=== PATIENT | female | born 1945 | race Caucasian/White ===

== ENCOUNTER 2020-04-11 15:06 | Inpatient (IN) | payer MEDICARE, BC, OTHER ==
[2020-04-11 16:13] LABS: #Basophils 0.1 thou/uL (0.0-0.2); #Lymphocytes 0.8 thou/uL (1.20-3.40); #Monocytes 1.2 thou/uL (0.11-0.59); #Neutrophils 16.5 thou/uL (1.40-6.50); %Basophils 0.6 % (0.0-1.0); %Eosinophils 0.2 % (0.0-10.0); %Lymphocytes 4.2 % (21.0-51.0); %Monocytes 6.5 % (0.0-10.0); %Neutrophils 88.6 % (42.0-75.0); Hemoglobin 6.7 g/dL (12.0-16.0); Mean Corpuscular HGB CONC 27.8 g/dL (32.0-36.0); Mean Corpuscular Hemoglobin 18.7 pg (27.0-31.0); Mean Corpuscular Volume 67.5 fL (78.0-98.0); Mean Platelet Volume 8.5 fL (7.4-10.4); Platelet Count 526 thou/uL (130-400); RBC Distribution Width 19.9 % (11.5-14.5); Red Blood Cell (RBC) Count 3.59 mill/uL (4.20-5.40); White Blood Cell (WBC) Count 18.6 thou/uL (4.8-10.8)
[2020-04-11 16:21] LABS: ALT (SGPT) 81 U/L (8-55); AST (SGOT) 340 U/L (5-34); Albumin 3.1 g/dL (3.4-4.8); Alkaline Phosphatase 746 U/L (40-110); Anion Gap 18 mmol/L (10-20); BUN (Urea Nitrogen) 21 mg/dL (9.8-20.1); Bilirubin, Total 0.7 mg/dL (0.2-1.2); Calc. Creatinine Clearance 0 mL/min (70-130); Calcium 9.3 mg/dL (7.8-10.44); Carbon Dioxide 23 mmol/L (23-31); Chloride 100 mmol/L (98-107); Estimated GFR-MDRD Greater than 90; Globulin 3.2 g/dL (2.4-3.5); Glucose 155 mg/dL (83-110); Lipase 48 U/L (8-78); Potassium 4.9 mmol/L (3.5-5.1); Protein, Total 6.3 g/dL (6.0-8.3); Sodium 136 mmol/L (136-145)
[2020-04-11 16:27] LABS: INR-International Normal Ratio 1.3; PTT 32.2 sec (22.9-36.1); Prothrombin Time 16.2 sec (12.0-14.7)
[2020-04-11] MEDS ORDERED: Albuterol Sulfate 2.5 mg/3 ml Neb ONE (16:49)
[2020-04-11 17:02] LABS: Anisocytosis MODERATE=16-30 cells (100X) (0-5/hpf); Hypochromia MODERATE=16-30 cells (100X) (0-5/hpf); MDiff Complete? YES; Microcytosis MODERATE=15-30 cells (100X) (0-5/hpf); Platelet Morphology Comment Appears Increased; Polychromasia SLIGHT = 2-3 cells (100X) (0-2/hpf)
[2020-04-11] MEDS ORDERED: Sodium Chloride 0.9% 500 ML ONE (17:15)
--- NOTE | 2020-04-11 17:53 | RAD ---
SINGLE VIEW CHEST: Date: 04/11/2020 COMPARISON: 03/10/2020. CTA chest dated 03/10/2020. HISTORY: Dyspnea. FINDINGS: Single view of the chest shows an enlarged but stable cardiomediastinal silhouette. Scattered areas o f air space opacity are seen in the lungs. This is most prominent in the right upper lobe. There is u pward tenting of the right hemidiaphragm. There may be small bilateral effusions. IMPRESSION: 1. Right upper lobe infiltrate. 2. Bilateral pleural effusions. POS: AYANA
[2020-04-11] MEDS ORDERED: Ondansetron PF 4 MG/2 ML Vial IVP PRN (19:31)
[2020-04-11 20:13] LABS: Lactic Acid 1.3 mmol/L (0.5-2.2)
[2020-04-11 21:00] VITALS: BMI 17.5
[2020-04-11] MEDS ORDERED: Sodium Chloride 0.9% 250 ML 250 ML ONE (21:35)
[2020-04-11] MEDS: Famotidine/PF 20 mg/2ml Vial SLOW IVP SCH (21:48)
[2020-04-11] MEDS: Saccharomyces boulardii 250 MG CAP PO SCH (21:48)
[2020-04-11] MEDS: Benzonatate 100 MG CAP PO PRN (21:48)
[2020-04-12] MEDS: Levothyroxine Sodium 88 MCG TAB PO SCH (05:34)
[2020-04-12 06:21] LABS: ALT (SGPT) 67 U/L (8-55); AST (SGOT) 270 U/L (5-34); Albumin 2.8 g/dL (3.4-4.8); Alkaline Phosphatase 650 U/L (40-110); Anion Gap 15 mmol/L (10-20); BUN (Urea Nitrogen) 17 mg/dL (9.8-20.1); Bilirubin, Total 0.8 mg/dL (0.2-1.2); Calc. Creatinine Clearance 78 mL/min (70-130); Calcium 8.9 mg/dL (7.8-10.44); Carbon Dioxide 23 mmol/L (23-31); Chloride 104 mmol/L (98-107); Estimated GFR-MDRD Greater than 90; Globulin 2.9 g/dL (2.4-3.5); Glucose 116 mg/dL (83-110); Potassium 4.2 mmol/L (3.5-5.1); Protein, Total 5.7 g/dL (6.0-8.3); Sodium 138 mmol/L (136-145)
[2020-04-12 06:31] LABS: Bilirubin Small (Negative); Blood, Urine Trace (Negative); Clarity Hazy (Clear); Glucose, Urine (Dipstick) Negative (Negative); Ketone, Urine Trace mg/dL (Negative); Leukocyte Moderate (Negative); Nitrite Negative (Negative); Protein, Urine (Dipstick) 30 mg/dL (Neg-Trace); Urobilinogen 0.2 mg/dL (Less than 2); pH, Urine 5.5 (5.0-9.0)
[2020-04-12 06:37] LABS: #Basophils 0.1 thou/uL (0.0-0.2); #Lymphocytes 0.8 thou/uL (1.20-3.40); #Monocytes 1.5 thou/uL (0.11-0.59); #Neutrophils 12.8 thou/uL (1.40-6.50); %Basophils 0.5 % (0.0-1.0); %Eosinophils 0.2 % (0.0-10.0); %Lymphocytes 5.3 % (21.0-51.0); %Monocytes 9.7 % (0.0-10.0); %Neutrophils 84.3 % (42.0-75.0); Anisocytosis SLIGHT = 6-15 cells (100X) (0-5/hpf); Band 1 % (5-11); Hemoglobin 8.4 g/dL (12.0-16.0); Hypochromia SLIGHT = 6-15 cells (100X) (0-5/hpf); Lymphocytes 20 % (21-51); MDiff Complete? YES; Mean Corpuscular HGB CONC 28.5 g/dL (32.0-36.0); Mean Corpuscular Volume 73.6 fL (78.0-98.0); Mean Platelet Volume 7.6 fL (7.4-10.4); Microcytosis SLIGHT = 6-15 cells (100X) (0-5/hpf); Monocytes 8 % (0-10); Neutrophil 71 % (42-75); Platelet Count 360 thou/uL (130-400); Platelet Morphology Comment Appears Adequate; Polychromasia SLIGHT = 2-3 cells (100X) (0-2/hpf); Red Blood Cell (RBC) Count 3.98 mill/uL (4.20-5.40); White Blood Cell (WBC) Count 15.2 thou/uL (4.8-10.8)
[2020-04-12 06:44] LABS: RBC/HPF 0-3 HPF (0-3); WBC/HPF 21-50 HPF (0-3)
[2020-04-12 06:45] LABS: Bacteria/HPF 1+ HPF (None Seen)
[2020-04-12] MEDS: Saccharomyces boulardii 250 MG CAP PO SCH ×2 (09:26→20:51)
[2020-04-12] MEDS: Dexamethasone 4 MG TAB PO SCH (09:27)
[2020-04-12] MEDS: Multivitamin W/ Minerals 1 TAB PO SCH (09:32)
[2020-04-12] MEDS: Losartan 25 MG TAB PO SCH (09:32)
[2020-04-12] MEDS: Cyanocobalamin (Vitamin B-12) 1,000 MCG TAB PO SCH (09:33)
[2020-04-12] MEDS: Famotidine/PF 20 mg/2ml Vial SLOW IVP SCH ×2 (09:33→20:51)
[2020-04-12] MEDS: metFORMIN 500 MG TAB PO SCH ×2 (09:33→16:05)
[2020-04-12] MEDS: Benzonatate 100 MG CAP PO PRN (16:05)
[2020-04-12 16:28] LABS: SARS-CoV-2 MS2 Positive; SARS-CoV-2 N Gene Negative; SARS-CoV-2 S Gene Negative; SARS-CoV-2 by NAA Not Detected (NotDetected); SARS-CoV-2 orf1ab Negative
--- NOTE | 2020-04-13 05:04 | PRG ---
DATE OF SERVICE: 04/12/2020 SUBJECTIVE: The patient is an unfortunate 74-year-old white female with a history of progressive hepatocellular carcinoma with right atrial thrombus, who has developed a lower GI bleed with hematochezia and melena. She has been transfused with 2 units of packed cells and feels better today, but is still dyspneic on minimal exertion and still lying in the bed with weakness on the patient. However, upon discussion with the patient, she still wishes to continue with chemotherapy and after discussion with her oncologist personally, Dr. Garcia, He states that he can offer her some more therapy, if she stabilizes from the GI bleed and is able to be anticoagulated for right atrial thrombus. PHYSICAL EXAMINATION: VITAL SIGNS: Today show a temperature of 97, pulse 80, respirations 20, O2 sats 93% on 2.5 L and blood pressure is 168/73. LABORATORY DATA: White count is down to 15,000, hematocrit 29, hemoglobin up to 8.4. Sodium 138, potassium 4.2, chloride 104, bicarb , creatinine 0.49, glucose 160, alkaline phosphatase 650, albumin 2.8, AST 270, ALT 67. ASSESSMENT: 1. Improved anemia after transfusion from gastrointestinal bleed with no further gastrointestinal bleed. 2. Progressive hepatocellular carcinoma with progression into the inferior vena cava and right atrium with significant risk for pulmonary embolus. 3. Recent bilateral pneumonia. Appears to have improved, but now still has leukocytosis, although on Decadron and has no fever or other criteria for sepsis, but is being covered with Levaquin 750 daily. PLAN: Discuss further with oncologist and family and probably transfer to [facility] for gastrology evaluation of her GI bleed and then probable institution of anticoagulation. She will also be continued on antibiotic treatment and her leukocytosis, hypoxemia and pulmonary infiltrate will be followed. Job ID: [id number]
[2020-04-13] MEDS: Levothyroxine Sodium 88 MCG TAB PO SCH (05:15)
[2020-04-13 05:29] LABS: Hemoglobin 8.6 g/dL (12.0-16.0); Mean Corpuscular HGB CONC 29.1 g/dL (32.0-36.0); Mean Corpuscular Hemoglobin 21.1 pg (27.0-31.0); Mean Corpuscular Volume 72.6 fL (78.0-98.0); Red Blood Cell (RBC) Count 4.07 mill/uL (4.20-5.40); White Blood Cell (WBC) Count 15.8 thou/uL (4.8-10.8)
[2020-04-13 05:30] LABS: #Basophils 0.1 thou/uL (0.0-0.2); #Lymphocytes 0.8 thou/uL (1.20-3.40); #Monocytes 1.6 thou/uL (0.11-0.59); #Neutrophils 13.2 thou/uL (1.40-6.50); %Basophils 0.8 % (0.0-1.0); %Eosinophils 0.1 % (0.0-10.0); %Lymphocytes 5.3 % (21.0-51.0); %Neutrophils 83.8 % (42.0-75.0); ALT (SGPT) 58 U/L (8-55); AST (SGOT) 196 U/L (5-34); Albumin 2.8 g/dL (3.4-4.8); Alkaline Phosphatase 700 U/L (40-110); Anion Gap 14 mmol/L (10-20); Anisocytosis MODERATE=16-30 cells (100X) (0-5/hpf); BUN (Urea Nitrogen) 13 mg/dL (9.8-20.1); Bilirubin, Total 0.7 mg/dL (0.2-1.2); Calc. Creatinine Clearance 80 mL/min (70-130); Calcium 8.9 mg/dL (7.8-10.44); Carbon Dioxide 26 mmol/L (23-31); Chloride 102 mmol/L (98-107); Estimated GFR-MDRD Greater than 90; Glucose 104 mg/dL (83-110); Hypochromia MARKED = >30 cells (100X) (0-5/hpf); MDiff Complete? YES; Mean Platelet Volume 7.7 fL (7.4-10.4); Platelet Count 329 thou/uL (130-400); Platelet Morphology Comment Appears Adequate; Polychromasia SLIGHT = 2-3 cells (100X) (0-2/hpf); Potassium 4.5 mmol/L (3.5-5.1); Protein, Total 5.8 g/dL (6.0-8.3); RBC Distribution Width 23.7 % (11.5-14.5); Sodium 137 mmol/L (136-145); Target Cells SLIGHT = 2-5 cells (100X) (0-1/hpf)
--- NOTE | 2020-04-13 06:08 | HP ---
CHIEF COMPLAINT: Symptomatic anemia and recent lower GI bleed in a patient on chemotherapy for progressive hepatocellular carcinoma. HISTORY OF PRESENT ILLNESS: The patient is a 74-year-old white female recently known to myself with a diagnosis of liver cancer since October 2019 with IV chemotherapy and radioactive beads with initially felt to have some improvement, but with recent finding of progression of her tumor from the liver into the inferior vena cava and into the right atrium with a 4 x 2 cm mass in the right atrium, most likely a combination of tumor and thrombus associated with distention of the pulmonary arteries and finding of pulmonary hypertension. She also has been found to have a recent diagnosis of pneumonia in March of this year, requiring admission to [facility] for treatment with broad-spectrum antibiotics. She was found to be COVID negative. CT angio at that time showed no pulmonary embolus. She, however, remained hypoxic and was discharged home on 2 L of oxygen with resolving infiltrates. She has been found on this admission to have persistent right upper lobe infiltrate and increasing infusions. She has also been found however to have the above-mentioned significant anemia with a hemoglobin of 6.7 and severe weakness. This is compared to her previous chronic anemia of 8-9 g of hemoglobin for the last 6 months. Upon questioning, it was found that she has had dark stools for 2 weeks and bright red blood per rectum for the last several days. She has had minimal but stable abdominal pain. She has had no nausea, vomiting, or hematemesis. She has been admitted to the hospital for transfusion of 2 units of packed cells and monitoring of her GI bleeding. She will have further consultation with Gastroenterology after more discussion with her oncologist, Dr. Garcia. His phone is [phone]. She does state she wished to be admitted to the hospital and wants more aggressive treatment and is not interested in palliative care or hospice at this time. REVIEW OF SYSTEMS: HEENT: She denies headaches. She does have some weakness, but no dizziness. No change in vision or hearing. No fever, chills. PULMONARY: She complains of shortness of breath with no cough, sputum production, or chest pain. CARDIOVASCULAR: She denies chest pain, orthopnea, paroxysmal nocturnal dyspnea. She does have trace to 1+ edema. GASTROINTESTINAL: She denies abdominal pain, nausea, vomiting, hematemesis, but has the above-mentioned right red rectal bleeding and melena. GENITOURINARY: Denies dysuria, hematuria, nocturia. MUSCULOSKELETAL: Denies pain or stiffness in her joints. NEUROLOGIC: Denies localized numbness or tingling in arms or extremities, but does have generalized weakness. PAST MEDICAL HISTORY: Positive for type 2 diabetes, hypothyroidism, hypertension, above-mentioned liver cancer. PAST SURGICAL HISTORY: Positive for hysterectomy, thyroidectomy. SOCIAL HISTORY: She lives alone next to her son, but recently her son has been staying with her. She is a nonsmoker, does not drink alcohol. ALLERGIES: SHE IS ALLERGIC TO HYDROCODONE. MEDICATIONS: At present, include: 1. Benicar 5 mg daily. 2. Metoprolol 100 mg daily. 3. Metformin 500 mg twice daily. 4. Levothyroxine 88 mcg daily. PHYSICAL EXAMINATION: VITAL SIGNS: Blood pressure on presentation to the emergency room was 143/77, pulse 96, respirations 27, O2 saturations 95% on 2 L. HEENT: Sclerae are pale. Conjunctivae pale. Oral mucous membranes slightly hydrated. Pupils equal, round, and reactive to light and accommodation. NECK: Shows JVP is not elevated. Carotids 2+ and equal without bruits. There is no lymphadenopathy. No thyroid mass. LUNGS: Show decreased breath sounds in the bases. Few wheezes anteriorly. No rhonchi or rales. CARDIOVASCULAR: PMI in the fifth intercostal space, midclavicular line. There is an S4. No other gallops or murmurs. ABDOMEN: Soft, minimally tender. No masses or organomegaly. RECTAL: In the emergency room showed external hemorrhoids, but guaiac-positive stool. NEUROLOGIC: Cranial nerves 2 through 12 are intact. Deep tendon reflex 2+ and equal. Absent Babinski. Normal finger-nose coordination, diffusely decreased strength. LABORATORY DATA: Show white count 59450, hematocrit 24, hemoglobin 6.7, PT 16, INR 1.3. Sodium 136, potassium 4.9, chloride 100, bicarb 23, BUN 21, creatinine 0.59, lactate 1.3. Troponin 0.014. BNP 10. IMAGING: Chest x-ray shows right upper lobe infiltrate, bilateral effusions. ASSESSMENT: The patient is a 74-year-old white female with history of progressive hepatocellular cancer despite chemotherapy and radiation therapy with beads, who presents with lower gastrointestinal bleed with hematochezia, melena and symptomatic anemia. She also has been found to have progression of the tumor into her right atrium with a thrombus in the right atrium and persistent right upper lobe infiltrate and hypoxia and bilateral effusions from previous pneumonia. She will be admitted to the hospital for transfusion of 2 units of packed cells to improve her symptomatic anemia. Discussion will be entertained hospice or palliative care, but the patient has wished aggressive treatment in the past and if this continues, we will most likely consult Gastroenterology for colonoscopy and endoscopy to determine, if there is significant gastrointestinal lesion prohibiting anticoagulation, which is needed for her thrombus in the right atrium as she is at significant risk for severe pulmonary embolus. The patient as mentioned above is wanting to continue therapy when last discussed with family, but she is not to be resuscitated and has advance directives. She will be restarted back on her home medications of metoprolol 100 mg daily, metformin 500 twice daily, losartan 25 daily, levothyroxine 88 mcg daily. She will also be started on Levaquin 750 mg daily, because of persistent right upper lobe infiltrate and the leukocytosis, although this could be related to her ongoing dexamethasone treatment, which she has been taking as part of her chemotherapy regimen. Job ID: [id number]
[2020-04-13 07:53] VITALS: TEMP 97.1
[2020-04-13] MEDS: metFORMIN 500 MG TAB PO SCH (08:32)
[2020-04-13] MEDS: Losartan 25 MG TAB PO SCH (08:32)
[2020-04-13] MEDS: Saccharomyces boulardii 250 MG CAP PO SCH (08:32)
[2020-04-13] MEDS: Cyanocobalamin (Vitamin B-12) 1,000 MCG TAB PO SCH (08:33)
[2020-04-13] MEDS: Dexamethasone 4 MG TAB PO SCH (08:33)
[2020-04-13] MEDS: Multivitamin W/ Minerals 1 TAB PO SCH (08:33)
[2020-04-13] MEDS: Famotidine/PF 20 mg/2ml Vial SLOW IVP SCH (08:38)
[2020-04-13] MEDS ORDERED: Pantoprazole 40 MG VIAL IVP SCH (09:00)
[2020-04-13] MEDS ORDERED: Losartan 25 MG TAB PO SCH (09:30)
[2020-04-13 10:39] VITALS: BP 163/76
[2020-04-14] MEDS ORDERED: Losartan 25 MG TAB PO SCH (09:00)
== END 2020-04-13 16:15 | disposition hospice, home (50) | DRG 378 ==
LOC: NAV ERS 15:06 → NAV ACUTE 18:36
PROVIDERS: ADMIT Internal Medicine; ATTEND Internal Medicine
PROC: 30233N1 Transfusion of Nonautologous Red Blood Cells into Peripheral Vein, Percutaneous Approach (ICD-10-PCS; principal; 2020-04-11)
DX: K92.1 Melena (principal); C22.0 Liver cell carcinoma; C38.0 Malignant neoplasm of heart; C49.4 Malignant neoplasm of connective and soft tissue of abdomen; J90 Pleural effusion, not elsewhere classified; Z20.828 Contact with and (suspected) exposure to other viral communicable diseases; D64.9 Anemia, unspecified; I27.20 Pulmonary hypertension, unspecified; E11.9 Type 2 diabetes mellitus without complications; I10 Essential (primary) hypertension; D72.829 Elevated white blood cell count, unspecified; R09.02 Hypoxemia; R91.8 Other nonspecific abnormal finding of lung field; E03.9 Hypothyroidism, unspecified; Z92.21 Personal history of antineoplastic chemotherapy; Z92.3 Personal history of irradiation; Z90.710 Acquired absence of both cervix and uterus; Z90.89 Acquired absence of other organs; Z88.8 Allergy status to other drugs, medicaments and biological substances; Z79.84 Long term (current) use of oral hypoglycemic drugs; Z87.01 Personal history of pneumonia (recurrent)
CPT/HCPCS: 36415; 36430; 71045; 80053; 81001; 82274; 83605; 83690; 83880; 84484; 85025; 85610; 85730; 86850; 86900; 86901; 87040; 87086; 87635; 93005; 94640; C9113; J7030; J7050; J7611; J7620; P9016; S0028; U0003